=== PATIENT | male | born 1960 ===

== ENCOUNTER 2017-09-19 20:01 | Emergency (ER) | payer SELFPAY ==
[~2017-09-19 20:01] MED LIST: Etomidate 2 MG/ML 20 ML SDV IVPUSH ONE; Rocuronium 50 MG/5 ML Vial IVPUSH ONE; Sodium Chloride 0.9% 1,000 ML IV ONE; Succinylcholine 200 MG/10 ML MDV IV ONE
[2017-09-19] MEDS ORDERED: Sodium Chloride 0.9% 10 ML Syringe FLUSH PRN (20:17)
[2017-09-19] MEDS ORDERED: Sodium Chloride 0.9% 2.5 ML Syringe FLUSH PRN (20:17)
[2017-09-19] MEDS ORDERED: Sodium Chloride 0.9% 1,000 ML IV ONE ×2 (20:17→21:00)
[2017-09-19] MEDS ORDERED: MVI, Adult with Vitamin K 10 ML, Thiamine 100 MG, Folic Acid 1 MG in Sodium Chloride 0.... IV ONE ×4 (20:17)
--- NOTE | 2017-09-19 20:24 | EDM.PDOC ---
ED HPI GENERAL MEDICAL PROBLEM - General Chief Complaint: Neurological Problem Stated Complaint: UNK Time Seen by Provider: 09/19/17 20:12 - History of Present Illness INITIAL COMMENTS - FREE TEXT/NARRATIVE: HISTORY AND PHYSICAL: History of present illness: Patient 56-year-old black male with unknown past medical history was brought by paramedics who found the patient down face first and is now there is no obvious signs of trauma patient was reported to be unresponsive in the field and nonverbal unable to obtain a blood pressure did dip a strong pulse and patient was breathing transported here upon arrival here he is repeating unintelligible 3 word sentence combative. He is moving all extremities pupils were 4-5 and reactive patient was intubated by rapid sequence intubation by myself with a 7.5 ET tube without complication good color change status post intubation the breath sounds are equal chest x-ray is pending routine labs including CBC CMP troponin PT/INR ammonia level prolactin level urine tox UA blood alcohol level chest x-ray CT brain C-spine are all ordered and pending c-collar was applied upon arrival Review of systems: As per history of present illness and below otherwise all systems reviewed and negative. Blood sugar prior to arrival was greater than 100 Past medical history: As per history of present illness and as reviewed below otherwise noncontributory. Surgical history: As per history of present illness and as reviewed below otherwise noncontributory. Social history: No reported history of drug or alcohol abuse. Family history: As per history of present illness and as reviewed below otherwise noncontributory. Physical exam: HEENT: Atraumatic, normocephalic, pupils reactive, negative for conjunctival pallor or scleral icterus, mucous membranes moist, throat clear, c-collar applied , trachea midline. Lungs: Clear to auscultation, breath sounds equal bilaterally, chest nontender. Heart: S1S2, regular, negative for clicks, rubs, or JVD. Abdomen: Soft, nondistended, nontender. Negative for masses or hepatosplenomegaly. Negative for costovertebral tenderness. Pelvis: Stable nontender. Genitourinary: Deferred. Rectal: Deferred. Extremities: Atraumatic, negative for cords or calf pain. Neurovascular unremarkable. Neuro: Awake, combative moves all extremities unintelligible repeated 3 word sentence Diagnostics: See above Therapeutics: Intubation as above by RSI propofol drip initiated chest x-ray demonstrates ET tube in right mainstem approximately 1-2 cm below the ovidio this was withdrawn or centimeters in repeat chest x-rays pending Impression: #1 altered mental status #2 rule out traumatic fall #3 rule out substance abuse/ alcohol intoxication Definitive disposition and diagnosis as appropriate pending reevaluation and review of above. ED ROS GENERAL - Review of Systems Review Of Systems: ROS reveals no pertinent complaints other than HPI. ED EXAM, GENERAL - Physical Exam Exam: See Below (See dictation) Course - Orders/Labs/Meds Orders: Active Orders 24 hr Category Date Time Status Cardiac Monitoring [RC] . DIRECTED Care 09/19/17 20:17 Ordered EKG Documentation Completion [RC] STAT Care 09/19/17 20:17 Ordered Pulse Oximetry [RC] ASDIRECTED Care 09/19/17 20:17 Ordered Cervical Spine wo Cont [CT] Stat Exams 09/19/17 20:17 Ordered Chest 1V Frontal [CR] Stat Exams 09/19/17 20:17 Ordered Head wo Cont [CT] Stat Exams 09/19/17 20:17 Ordered AMMONIA VENOUS [CHEM] Stat Lab 09/19/17 20:17 Ordered CBC WITH AUTO DIFF [HEME] Stat Lab 09/19/17 20:17 Ordered COMPREHENSIVE METABOLIC PN,CMP [CHEM] Stat Lab 09/19/17 20:17 Ordered DRUG SCREEN, URINE [URCHEM] Stat Lab 09/19/17 20:17 Uncollected ETHANOL BLOOD MEDICAL [CHEM] Stat Lab 09/19/17 20:17 Ordered INR,PT,PROTHROMBIN TIME [COAG] Stat Lab 09/19/17 20:17 Ordered PROLACTIN [CHEM] Stat Lab 09/19/17 20:17 Ordered UA W/O MICROSCOPIC [URIN] Stat Lab 09/19/17 20:17 Uncollected MVI, Adult with Vitamin K [Infuvite Adult] 10 ml Med 09/19/17 20:17 Ordered Thiamine [Vitamin B-1] 100 mg Folic Acid 1 mg Sodium Chloride 0.9% [Normal Saline] 1,000 ml IV ONETIME Sodium Chloride 0.9% [Normal Saline] 1,000 ml Med 09/19/17 20:17 Ordered IV STAT Sodium Chloride 0.9% [Saline Flush] Med 09/19/17 20:17 Ordered 10 ml FLUSH ASDIRECTED PRN Sodium Chloride 0.9% [Saline Flush] Med 09/19/17 20:17 Ordered 2.5 ml FLUSH ASDIRECTED PRN Saline Lock Insert [OM.PC] Stat Oth 09/19/17 20:17 Ordered Meds: Medications Discontinued Medications Generic Name Dose Route Start Last Admin Trade Name Lauren PRN Reason Stop Dose Admin Propofol Confirm 09/19/17 20:12 Diprivan 100 Ml Administered 09/19/17 20:13 Dose 100 mls @ as directed .ROUTE .STK-MED ONE Departure - Departure Time of Disposition: 20:23 Disposition: DC/Tfer to Acute Hospital 02 Condition: Good Clinical Impression: Altered mental status - Discharge Information - My Orders Last 24 Hours: My Active Orders 09/19/17 20:17 Cardiac Monitoring [RC] . DIRECTED EKG Documentation Completion [RC] STAT Pulse Oximetry [RC] ASDIRECTED Cervical Spine wo Cont [CT] Stat Chest 1V Frontal [CR] Stat Head wo Cont [CT] Stat AMMONIA VENOUS [CHEM] Stat CBC WITH AUTO DIFF [HEME] Stat COMPREHENSIVE METABOLIC PN,CMP [CHEM] Stat DRUG SCREEN, URINE [URCHEM] Stat ETHANOL BLOOD MEDICAL [CHEM] Stat INR,PT,PROTHROMBIN TIME [COAG] Stat PROLACTIN [CHEM] Stat UA W/O MICROSCOPIC [URIN] Stat MVI, Adult with Vitamin K [Infuvite Adult] 10 ml Thiamine [Vitamin B-1] 100 mg Folic Acid 1 mg Sodium Chloride 0.9% [Normal Saline] 1,000 ml IV ONETIME Sodium Chloride 0.9% [Normal Saline] 1,000 ml IV STAT Sodium Chloride 0.9% [Saline Flush] 10 ml FLUSH ASDIRECTED PRN Sodium Chloride 0.9% [Saline Flush] 2.5 ml FLUSH ASDIRECTED PRN Saline Lock Insert [OM.PC] Stat - Assessment/Plan Last 24 Hours: My Active Orders 09/19/17 20:17 Cardiac Monitoring [RC] . DIRECTED EKG Documentation Completion [RC] STAT Pulse Oximetry [RC] ASDIRECTED Cervical Spine wo Cont [CT] Stat Chest 1V Frontal [CR] Stat Head wo Cont [CT] Stat AMMONIA VENOUS [CHEM] Stat CBC WITH AUTO DIFF [HEME] Stat COMPREHENSIVE METABOLIC PN,CMP [CHEM] Stat DRUG SCREEN, URINE [URCHEM] Stat ETHANOL BLOOD MEDICAL [CHEM] Stat INR,PT,PROTHROMBIN TIME [COAG] Stat PROLACTIN [CHEM] Stat UA W/O MICROSCOPIC [URIN] Stat MVI, Adult with Vitamin K [Infuvite Adult] 10 ml Thiamine [Vitamin B-1] 100 mg Folic Acid 1 mg Sodium Chloride 0.9% [Normal Saline] 1,000 ml IV ONETIME Sodium Chloride 0.9% [Normal Saline] 1,000 ml IV STAT Sodium Chloride 0.9% [Saline Flush] 10 ml FLUSH ASDIRECTED PRN Sodium Chloride 0.9% [Saline Flush] 2.5 ml FLUSH ASDIRECTED PRN Saline Lock Insert [OM.PC] Stat
[2017-09-19 20:45] LABS: CHLORIDE,CL 111 mmol/L (98-110); SODIUM,NA 144 mmol/L (136-146)
[2017-09-20] MEDS ORDERED: Etomidate 2 MG/ML 20 ML SDV IVPUSH ONE (02:45)
[2017-09-20] MEDS ORDERED: Propofol 200 MG/20 ML SDV IVPUSH ONE (02:45)
[2017-09-20] MEDS ORDERED: Rocuronium 50 MG/5 ML Vial IVPUSH ONE (03:56)
[2017-09-20] MEDS ORDERED: Succinylcholine 200 MG/10 ML MDV IV ONE (04:01)
[2017-09-20] MEDS ORDERED: Sodium Chloride 0.9% 1,000 ML IV ONE ×2 (06:50)
--- NOTE | 2017-09-20 17:21 | CR ---
EXAM DATE: 09/19/17 PATIENT'S AGE: 56 Patient: DANNIE APODACA Facility: [place], [place] Site . Site : 1960 Study: XRay Chest [id number]/21/2017 8:22:19 PM Ordering Physician: Jonathan Rodriguez Final Report: INDICATIONS: Post intubation. Found laying in the snow. Altered mental status. TECHNIQUE: Chest 1 view. COMPARISON: None FINDINGS: Endotracheal tube enters the right mainstem bronchus and should be retracted. A followup film performed approximately 15 minutes following the current study demonstrates retraction of the endotracheal tube. No pneumothorax, pleural effusion or airspace consolidation. Cardiac and mediastinal contours appear within normal limits. Gaseous distention of the stomach. Bony thorax is unremarkable. IMPRESSION: Endotracheal tube enters the right mainstem bronchus. A followup study approximately 15 minutes after this study demonstrates a retracted endotracheal tube terminating above the ovidio. Dictated by Dannie Heredia MD @ 09/19/2017 8:50:07 PM Dictated by: Dannie Heredia MD @ 09/19/2017 20:50:21 (Electronic Signature) Report Signed by Proxy. [facility]
--- NOTE | 2017-09-20 17:22 | CR ---
EXAM DATE: 09/19/17 PATIENT'S AGE: 56 Patient: DANNIE APODACA Facility: [place], [place] Site . Site : 1960 Study: XRay Chest [id number]/21/2017 8:40:36 PM Ordering Physician: Jonathan Rodriguez Final Report: INDICATIONS: Post intubation #2. TECHNIQUE: Chest 1 portable AP view. COMPARISON: Chest radiograph 09/19/2017 at 8:16 p.m.. FINDINGS: Endotracheal tube has been retracted, now terminating approximately 5.5 cm above the ovidio. An enteric tube is now present, coiled within the stomach. No pneumothorax or pleural effusion. No focal airspace consolidation. Cardiac and mediastinal contours appear within normal limits. Upper abdomen and osseous structures show no acute abnormality. IMPRESSION: Endotracheal tube has been retracted, now terminating approximately 5.5 cm above the ovidio. Enteric tube extends into the stomach. Dictated by Dannie Heredia MD @ 09/19/2017 8:53:25 PM Dictated by: Dannie Heredia MD @ 09/19/2017 20:53:40 (Electronic Signature) Report Signed by Proxy. SHONDA
--- NOTE | 2017-09-20 17:24 | CT ---
EXAM DATE: 09/19/17 PATIENT'S AGE: 56 Patient: RONDA APODACA Facility: [place], [place] : 1960 Study: CT Spine Cervical [id number]/21/2017 8:53:26 PM Ordering Physician: DAVE Final Report: INDICATION: Unconscious TECHNIQUE: CT cervical spine without contrast. COMPARISON: None available FINDINGS: A normal cervical lordosis is present. The craniocervical and atlantoaxial alignments are near anatomical. There is no evidence of an acute cervical spine fracture. There is no significant precervical soft tissue swelling. An endotracheal tube and a nasogastric tube are seen. IMPRESSION: : No evidence of an acute cervical spine fracture. Dictated by Doyle Yao MD @ 09/19/2017 9:22:11 PM Dictated by: Doyle Yao MD @ 09/19/2017 21:22:15 (Electronic Signature) Report Signed by Proxy. MTDD
--- NOTE | 2017-09-20 17:28 | CT ---
EXAM DATE: 09/19/17 PATIENT'S AGE: 56 Patient: RONDA APODACA Facility: [place], [place] : 1960 Study: CT Head [id number]/21/2017 8:53:16 PM Ordering Physician: DAVE Final Report: INDICATION: Unconscious TECHNIQUE: CT head without contrast. COMPARISON: None available FINDINGS: There is mild cortical atrophy. The ventricles demonstrate normal configuration and size for the patient`s age. There is no mass effect or midline shift. There is no loss of tariq-white differentiation. Small low-density foci in the anterior limb of the right internal capsule and right caudate head are of unclear chronicity. There is no evidence of an acute intracranial hemorrhage. No acute calvarial fracture is seen. There are air-fluid levels in the ethmoid sinuses and left maxillary sinus as well as foci of mild paranasal sinus mucosal thickening. The mastoid air cells are clear. The visualized orbits are within normal limits. There is fluid and debris in the nasal cavity and nasopharynx with high density material which could represent blood products. IMPRESSION: No evidence of an acute intracranial hemorrhage, mass effect or loss of tariq- white differentiation. Small age indeterminate lacunar infarcts in the right internal capsule and caudate head are not excluded. Dictated by Doyle Yao MD @ 09/19/2017 9:01:13 PM Dictated by: Doyle Yao MD @ 09/19/2017 21:01:21 (Electronic Signature) Report Signed by Proxy. [facility]
== END 2017-09-19 21:17 ==
LOC: MW.ED 20:01
DX: R41.82 Altered mental status, unspecified (principal)
CPT/HCPCS: 31500; 43753; 70450; 71010; 72125; 80053; 80305; 81003; 82140; 84146; 85025; 85610; 96365; 96374; 96375; 99291; 99292; G0390; G0480; J0330; J7040; 93005